=== PATIENT | male | born 1945 | race Caucasian/White ===

== ENCOUNTER 2016-09-10 06:03 | Day surgery (SDC) | payer OTHER, MEDICARE ==
[~2016-09-10] VITALS: Ht 180.3 cm; Wt 88.7 kg
[~2016-09-10 06:03] MED LIST: CLOT30SO TOPICAL; CYCL10TA9 PO; FINA5TAB9 PO; KEN25CR EXT; KETO120S3 TP; TADA20TA PO; TAMS0.4C98 PO
[2016-09-10] MEDS ORDERED: fentaNYL-PF 50 mCg/mL 2 mL Inj ONE (06:04)
[2016-09-10 07:17] VITALS: BP_SYST 152; BP_SYST 176; BP_DIAS 102; BP_DIAS 96; PULSE 58; RESP 16; O2SAT 97
[2016-09-10] MEDS: Lactated Ringer's 1,000 ML IV SCH ×2 (07:23→08:09)
[2016-09-10] MEDS ORDERED: HYDROcodone-APAP 5-325 mg Tablet PO PRN (07:30)
[2016-09-10 07:53] VITALS: BP 181/95
[2016-09-10] MEDS ORDERED: Lidocaine 1%-Epi 1:100,000 20 mL Inj INJ ONE (08:29)
[2016-09-10] MEDS ORDERED: Lactated Ringer's 500 ML IV PRN (08:31)
[2016-09-10] MEDS ORDERED: Lactated Ringer's 1,000 ML IV SCH (08:31)
--- NOTE | 2016-09-10 08:31 | PCM.HPANE ---
Patient Data Surgeon Admitting Provider: Attending Provider:Diaz Fox DO Primary Care Physician:Will Garcia MD Other Provider:Nilesh Noe Anesthesia Reason for Visit Left Dorsal Wrist / Mass Ht/WT & BMI Height (Feet): 5 Height (Inches): 11.00 Weight (Kilograms): 88.720 Body Mass Index 27.00 Allergies Coded Allergies: No Known Allergies (Unverified , 09/07/16) Past Anesthesia History Anesthesia History: Denies:: Abnormal Airway, Anesthesia Reactions, Difficult Intubation, Fam Anesthesia Reaction Diabetes History Hx Diabetes?: No MRSA MRSA: No Medications Hypertension Medication: No Home Meds Incl Beta Maryuri: No Reported Medications Triamcinolone Acet (Triamcinolone Acetonide Cream)1 Applic/0.25 Gm Cr1 Applic EXT BID #60 GM Ref 0 09/07/16 Tamsulosin (Flomax)0.4 Mg Capsule0.4 Mg PO DAILY Ref 0 09/07/16 Ketoconazole 120 Ml [id number] Ml TP 09/07/16 Finasteride 5 Mg Tablet5 Mg PO DAILY 30 Days Ref 0 09/07/16 Cyclobenzaprine 10 Mg [id number] Mg PO TID PRN Spasm 09/07/16 Clotrimazole 1% 30 Ml [id number] Ml TOPICAL BID 09/07/16 Tadalafil (Cialis)20 Mg [id number] Mg PO PRN PRN erectile dysfunction Ref 0 As directed by physician. 09/07/16 History History of ENT Problems?: No HEENT History: Positive for:: Cataracts (bilateral) Denies:: Abnormal Airway Difficult Intubation Dysphagia Glaucoma Hearing Problem Sinus Problem TMJ Denture Type: None Teeth Condition: Within Normal Limits Hx of Heart Problems?: Yes Cardiovascular History: Positive for:: Irregular Heartbeat (PSVT- years ago- none for last 7 years ) Denies:: AICD Edema Heart Murmur Hypertension Pacemaker Thrombophlebitis Valvular Heart Disease Hx of Respiratory Problem?: No Respiratory History: Denies:: Asthma COPD Emphysema Oxygen Administration Pneumonia Tuberculosis Use of C-PAP Machine Use of Inhalers / NEBS Hx Neurologic Problems?: No Neurological History: Denies:: Alzheimer's Disease CVA Dementia Dizziness Headaches Multiple Sclerosis Parkinson's Disease Seizures TIA Hx of GI Problems?: No Hx of Problems?: Yes Genitourinary History: Positive for:: Kidney Stones (kidney stone hx- passed spontaneously- every few years) Denies:: Urinary Tract Infection Male Hx: Positive for:: Prostate Problems (BPH, monitoring PSA) Denies:: Scrotal Mass Testicular Surgery Skin History: Denies:: History Skin Disorders? Pressure Ulcers Hx Musculoskeletal Problems?: Yes Musculoskeletal History: Positive for:: Musculoskeletal Trauma (left wrist ganglion current admission problem) Denies:: Back Injury Fibromyalgia Joint Replacement Myasthenia Gravis Osteoarthritis Systemic Lupus Hx of Psycho/Social Problems?: No Psycho Social History: Denies:: Anxiety Hx Depression Hx Surgeries?: Yes (hernia, brady cataracts ) Hx Any Other Health Problems?: Yes Other History: Denies:: Cancer Thyroid Disease History Blood Transfusions: Positive for:: Accept Blood Products? Denies:: Blood Transfusions Hx Diabetes: No Hx Alcohol Use: YesAlcoholic Drinks Per Day: one glass wine dailyHx Substance Use: NoHave You Smoked inLast 12 mo: Yes (cigars until Apr 2016 (one a day) ) Stop/Bang S-Snoring: Do You Snore Loudly: No T-Tired: feel tired, fatigued: No O-Obsered: Observed not breath: No P-Blood Pressure: treated: No B- Body Mass Index > 35 kg/m2: No A- Age over 50: Yes N- Neck Large Circumference: No G- Gender Male: Yes LAY Total Score: 2 LAY Risk Assessment: Low Risk, <3 Yes Risk Assessment Category Category 1A: Patient has history of documented sleep apnea, and HAS NOT received any narcotic, sedative or anesthesia administration during this stay. Category 1B: Patient has history of documented sleep apnea, and HAS received any narcotic , sedative or anesthesia administration during this stay Category 2: Patient has SUSPECTED Obstructive Sleep Apnea, and HAS received any narcotic , sedative or anesthesia administration during this stay. Category 3: Patient has SUSPECTED Obstructive Sleep Apnea and HAS NOT received narcotic, sedative or anesthesia administration during this stay. Category 4: Outpatient in Procedural Areas with known sleep apnea or who screen positive for High Risk via the STOP/BANG questionnaire. Exam Exam Vital Signs Vital Signs Date Time Temp Pulse Resp B/P Pulse Ox O2 Delivery O2 Flow Rate FiO2 09/10/16 07:17 36.4 58 16 152/102 97 Room Air 176/96 General Appearance: Alert, Oriented X3 HEENT/AIRWAY: MP 2 Lungs: Clear to Auscultation Heart: Exam Unremarkable Meds/Labs/Diagnostics Admission Meds Current Medications Lactated Ringer's (Lr) 1,000 ml @ 10 mls/hr Q24H IV Last administered on 07:23; Start 09/10/16 at 05:00; Stop 09/14/16 at 08:59 Plan Impression Patient chart reviewed, patient interviewed and anesthestic plan with risks, benefits, and alternatives discussed, and informed consent obtained. ASA Physical Status: ASA2 Mod Systemic Disease Anesthetic Plan: MAC, Regional Block Bene/Risks/Altern/Consents: Yes HP Complete Prior to Induction: Yes Eber Bryant DO Sep 10, 2016 07:41
[2016-09-10] MEDS ORDERED: Dexamethasone 4 mg/mL Inj IVPUSH PRN (08:35)
[2016-09-10] MEDS ORDERED: Ondansetron 2 mg/mL 2 mL Inj IVPUSH PRN (08:35)
[2016-09-10] MEDS ORDERED: Atropine 0.4 mg/mL Inj IVPUSH PRN (08:35)
[2016-09-10] MEDS ORDERED: EPHEDrine Sulfate 50 mg/mL Inj IVPUSH PRN (08:35)
[2016-09-10] MEDS ORDERED: hydrALAZINE 20 mg/mL Inj IVPUSH PRN (08:35)
[2016-09-10] MEDS ORDERED: Phenylephrine 10,000 mCg/mL Inj IVPUSH PRN (08:35)
[2016-09-10] MEDS ORDERED: HYDROmorphone 1 mg/mL Inj IVPUSH PRN (08:35)
[2016-09-10] MEDS ORDERED: MetoCLOpramide 5 mg/mL 2 mL Inj IVPUSH PRN (08:35)
[2016-09-10] MEDS ORDERED: Labetalol 5 mg/mL 4 mL Inj IV PRN (08:35)
[2016-09-10] MEDS ORDERED: fentaNYL-PF 50 mCg/mL 2 mL Inj IVPUSH PRN (08:35)
[2016-09-10 08:50] VITALS: BP 157/96; PULSE 66; O2SAT 98
[2016-09-10 09:10] VITALS: BP 141/99; PULSE 61; O2SAT 97
--- NOTE | 2016-09-10 09:19 | PCM.ANEP1 ---
Post Anesthesia Phase 1 PACU Phase 1 Assessment Vital Signs Vital Signs Date Time Temp Pulse Resp B/P Pulse Ox O2 Delivery O2 Flow Rate FiO2 09/10/16 07:53 181/95 09/10/16 07:17 36.4 58 16 152/102 97 Room Air 176/96 Anesthetic Administered: MAC, Regional Block Level of Alertness: Awake, talking PARR's with Equal Strength: Yes Pain: No Nausea or Vomiting: No Oxygen Delivery: Room Air Lungs: Clear to Auscultation Dermatome Level: Full Sensation Complications: No Follow up Care: No Patient Instructions Provided: Yes Eber Bryant DO Sep 10, 2016 09:19
--- NOTE | 2016-09-10 09:56 | OP ---
[address] [address] OPERATIVE REPORT PATIENT: AMADOU CASON : 1945 MR#: [id number] ADMIT: 09/10/2016 JOB ID: [id number] DATE OF SURGERY: 09/10/2016 PREOPERATIVE DIAGNOSIS(ES): Left dorsal wrist mass. POSTOPERATIVE DIAGNOSIS(ES): Left dorsal wrist mass. PROCEDURE: Excision of left wrist dorsal mass subcutaneous measuring 3 cm in diameter. SURGEON: Diaz Fox D.O. ANESTHESIA: Katie block. HISTORY OF PRESENT ILLNESS: The patient is a pleasant 71-year-old male with a longstanding history of a left dorsal wrist mass along the ulnar margin of his carpus. I discussed with the patient the option to continue to observe versus having it excised. Recently we thought it was more likely a ganglion and attempted an aspiration, but was unsuccessful. After discussing all the risks, benefits, alternatives and indications, the patient opted to proceed with an excision of the left wrist dorsal subcutaneous mass. He understood the risks include, but not limited to, neurovascular injury, tendon injury, infection, recurrent stiffness, persistent pain, all of which may require further intervention. The patient had all questions answered. Consent was signed and placed in the chart. PROCEDURE IN DETAIL: The patient was brought to the operative suite and placed supine on the operating room table. Surgical time-out was performed. Everyone in the room was in agreement. After appropriate anesthesia was obtained, the left upper extremity was then prepped and draped in a sterile fashion. A longitudinal incision was made directly overlying the 3 cm mass. Dissection was carried down through the subcutaneous tissues identifying the mass with characteristics of a lipoma. The lipomatous mass was freed up from the surrounding soft tissues and removed in its entirety. The mass was sent off to pathology as a gross specimen. Copious irrigation was then performed followed by closure of the skin with 5-0 nylon in a simple interrupted fashion. The patient was then placed in a well-padded, well-molded volar resting splint. ESTIMATED BLOOD LOSS: Less than 1 cc. COMPLICATIONS: None. DISPOSITION: The patient tolerated the procedure well. Anesthesia was reversed. The patient was transferred back to recovery. SPECIMENS: A 3 cm left dorsal wrist mass sent to Pathology, likely representing a lipomatous mass. POSTOPERATIVE PLAN: The patient will followup in office in two weeks. We will remove the patient's sutures at that time as well as the splint and have him start working on range of motion and scar mobilization.
--- NOTE | 2016-09-14 13:48 | PATH ---
SURGICAL PATHOLOGY Attending Physician:Diaz Fox MD CASE STATUS: Signed Out PATIENT NAME: AMADOU CASON PID: [id number] : 1945 DATE COLLECTED:09/10/2016 15:27 SPECIMEN: Skin, biopsy CLINICAL HISTORY: LEFT DORSAL WRIST GANGLION VS MASS 1. LEFT WRIST MASS FINAL DIAGNOSIS: 1.MASS, LEFT WRIST: GANGLION CYST. ICD10 CODE M67.4 GROSS DESCRIPTION: The specimen is received in one formalin filled container labeled with the patient's name, sublabeled "left wrist mass" and consists of a 2.5 x 2.0 x 1.5 CM irregularly shaped light yellow conn portion of soft tissue. The specimen is inked blue. Sectioned into 8 pieces and entirely submitted in 4 cassettes. 09/10/2016 DAC MICRO DESCRIPTION: See diagnosis. ICD-9 CODES: CPT CODES: 98601 Electronically Signed Out Monster Topete MD [facility] [address] [facility], [place] [address] Technical component performed at [facility], [facility] [address], [place], [address]
== END 2016-09-10 23:59 | disposition home or self-care (01) ==
LOC: SAS 06:03
PROVIDERS: ATTEND Orthopaedic Surgery
DX: M67.432 Ganglion, left wrist (principal); I47.1 Supraventricular tachycardia; F17.210 Nicotine dependence, cigarettes, uncomplicated
CPT/HCPCS: 25111; J3010; J7120